=== PATIENT | male | born 1955 | race Caucasian/White ===

== ENCOUNTER → 2020-09-21 | Outpatient (CLI) | payer MEDICARE ==
[~2020-09-21] MED LIST: ASPI81TA45 PO; ATOR20TA37 PO; CHOL10003 PO; DOXA8TAB63 PO; FINA5TAB4 PO; LOSA100T14 PO; MELO7.5T31 PO; OMEG-133 PO; TAMS-11 PO; UBID100C41 PO
[2020-09-21 14:25] LABS: BASOPHILS % (AUTO) 1 % (0-1); EOSINOPHILS % (AUTO) 2 % (1-7); LYMPHOCYTES % (AUTO) 31 % (22-44); MEAN CORPUSCULAR HEMOGLOBIN 31.9 pg (27.5-34.5); MEAN CORPUSCULAR HGB CONC 34.6 g/dL (33.2-36.2); MEAN PLATELET VOLUME 8.3 fL (7.4-10.4); MONOCYTES % (AUTO) 6 % (2-9); NEUTROPHILS % (AUTO) 60 % (42-75); PLATELET COUNT 210 x10^3/uL (130-400); RED BLOOD COUNT 5.14 x10^6/uL (4.38-5.82)
[2020-09-21 14:28] LABS: MD NO
[2020-09-21 14:36] LABS: ALBUMIN 4.3 g/dL (3.4-5.0); ANION GAP 5 mmol/L (5-15); CALCIUM 9.9 mg/dL (8.5-10.1); CHLORIDE 109 mmol/L (98-107)
[2020-09-21 14:39] LABS: ALANINE AMINOTRANSFERASE 30 U/L (12-78); ALKALINE PHOSPHATASE 78 U/L (45-117); BILIRUBIN,TOTAL 0.7 mg/dL (0.2-1.0); CREATININE 0.68 mg/dL (0.7-1.3); TOTAL PROTEIN 7.8 g/dL (6.4-8.2)
== END | disposition home or self-care (01) ==
LOC: STAR 12:55
PROVIDERS: ATTEND Orthopaedic Surgery
DX: Z01.810 Encounter for preprocedural cardiovascular examination (principal); Z01.818 Encounter for other preprocedural examination; M25.561 Pain in right knee; M17.11 Unilateral primary osteoarthritis, right knee; Z20.822 Contact with and (suspected) exposure to COVID-19
CPT/HCPCS: 36415; 80053; 85025; 87081; 93005; U0003; U0005

== ENCOUNTER 2020-09-27 05:39 | Observation (INO) | payer MEDICARE ==
[~2020-09-27] VITALS: Ht 177.8 cm; Wt 105.0 kg
[2020-09-27] MEDS ORDERED: ROPIvacaine/PF 0.2%, 20 ML ONE (06:22)
[2020-09-27] MEDS ORDERED: VANCOMYCIN 1,000 MG ONE (06:22)
[2020-09-27] MEDS ORDERED: TRANEXAMIC ACID 100 MG/ML, 10ML ONE (06:22)
[2020-09-27] MEDS ORDERED: KETOROLAC 60 MG/2 ML ONE (06:22)
[2020-09-27] MEDS ORDERED: SODIUM CHLORIDE 0.9% 50 ML ONE (06:23)
[2020-09-27] MEDS ORDERED: EPINEPHRINE 1 MG/ML, 1ML ONE (06:23)
[2020-09-27] MEDS ORDERED: LACTATED RINGERS 1,000 ML IV SCH (06:30)
[2020-09-27] MEDS ORDERED: CHLORHEXIDINE 15 ML UDC PO ONE (06:30)
[2020-09-27] MEDS ORDERED: MIDAZOLAM 1 MG/ML, 2ML ONE (07:07)
[2020-09-27] MEDS ORDERED: LIDOCAINE-MPF 2% ,5ML ONE (07:08)
[2020-09-27] MEDS ORDERED: FENTANYL PF 250 MCG/5ML ONE (07:08)
[2020-09-27] MEDS ORDERED: CEFAZOLIN 1,000 MG ONE (07:19)
[2020-09-27] MEDS ORDERED: DEXAMETHASONE 4 MG/ML, 5ML ONE (07:19)
[2020-09-27] MEDS ORDERED: ONDANSETRON 2MG/ML, 2ML ONE (07:19)
[2020-09-27] MEDS ORDERED: PROPOFOL 10 MG/ML, 20ML ONE (07:19)
[2020-09-27] MEDS ORDERED: ACETAMINOPHEN 325 MG TABLET PO PRN (08:00)
[2020-09-27] MEDS ORDERED: ONDANSETRON 2MG/ML, 2ML IVPush PRN (08:00)
[2020-09-27] MEDS ORDERED: PROMETHAZINE 25 MG/ML, 1ML IVPush PRN (08:00)
[2020-09-27] MEDS ORDERED: OXYcodone 5 MG/5 ML ORAL.SOL UDC PO PRN (08:00)
[2020-09-27] MEDS ORDERED: HYDROmorphone 1 MG/ML, 1ML INJ IVPush PRN (08:00)
[2020-09-27] MEDS ORDERED: EPHEDRINE 50 MG/ML, 1ML IVPush PRN (08:00)
[2020-09-27] MEDS ORDERED: LABETALOL 5MG/ML, 20ML IV PRN (08:00)
[2020-09-27] MEDS ORDERED: hydrALAzine 20 MG/ML, 1ML IV PRN (08:00)
[2020-09-27] MEDS ORDERED: FENTANYL PF 100 MCG/2ML ONE (08:52)
[2020-09-27] MEDS ORDERED: OXYcodone 5 MG/5 ML ORAL.SOL UDC ONE (08:53)
[2020-09-27] MEDS ORDERED: DEXAMETHASONE 4 MG/ML, 1ML IVPush ONE (09:00)
[2020-09-27] MEDS ORDERED: ONDANSETRON 4 MG TABLET PO PRN (09:00)
[2020-09-27] MEDS ORDERED: DIPHENHYDRAMINE 50 MG/ML, 1ML IVPush PRN (09:00)
[2020-09-27] MEDS ORDERED: PROMETHAZINE 25 MG/ML, 1ML IM PRN (09:00)
[2020-09-27] MEDS ORDERED: PSYLLIUM PACKET PO PRN (09:00)
[2020-09-27] MEDS ORDERED: DOCUSATE 100 MG CAPSULE PO SCH (09:00)
[2020-09-27] MEDS ORDERED: ONDANSETRON 2MG/ML, 2ML IV PRN (09:00)
[2020-09-27] MEDS ORDERED: SENNA/DOCUSATE TABLET PO PRN (09:00)
[2020-09-27] MEDS ORDERED: MAGNESIUM HYDROXIDE 8%, 30ML UDC PO PRN (09:00)
[2020-09-27] MEDS ORDERED: PROMETHAZINE 12.5 MG SUPP PR PRN (09:00)
[2020-09-27] MEDS ORDERED: POLYETHYLENE GLYCOL 17 GM PACKET PO PRN (09:00)
[2020-09-27] MEDS ORDERED: CEFAZOLIN PMX 1GM/50ML 50 ML IVPB SCH (09:00)
[2020-09-27] MEDS ORDERED: ALUMINUM/MAG/SIMETHICONE 30 ML UDC PO PRN (09:00)
[2020-09-27] MEDS ORDERED: SODIUM CHLORIDE 0.9% 1,000 ML IV SCH (09:00)
[2020-09-27] MEDS ORDERED: KETOROLAC 30 MG/1 ML IV SCH (09:00)
[2020-09-27] MEDS ORDERED: DIAZEPAM 5 MG TABLET PO PRN (09:00)
[2020-09-27] MEDS ORDERED: BISACODYL 10 MG SUPP PR PRN (09:00)
[2020-09-27] MEDS ORDERED: OXYcodone IR 5MG TABLET PO PRN ×2 (09:00)
[2020-09-27] MEDS ORDERED: TRANEXAMIC ACID 1,000 MG in SODIUM CHLORIDE 0.9% 100 ML IVPB ONE (09:00)
[2020-09-27] MEDS ORDERED: ACETAMINOPHEN 500 MG TABLET PO SCH (09:00)
[2020-09-27] MEDS: FENTANYL PF 100 MCG/2ML IV PRN ×2 (09:05→09:20)
[2020-09-27] MEDS ORDERED: HYDROmorphone 1 MG/ML, 1ML INJ ONE (09:17)
[2020-09-27] MEDS ORDERED: DIPHENHYDRAMINE 25 MG CAPSULE PO PRN (10:30)
[2020-09-27] MEDS ORDERED: ASPIRIN 81 MG TABLET EC PO SCH (20:00)
== END 2020-09-27 14:00 | disposition home or self-care (01) ==
LOC: OUT 05:39 → ORIP 08:52
PROVIDERS: ADMIT Orthopaedic Surgery; ATTEND Orthopaedic Surgery
DX: M17.11 Unilateral primary osteoarthritis, right knee (principal); M70.42 Prepatellar bursitis, left knee; I10 Essential (primary) hypertension; E78.5 Hyperlipidemia, unspecified; Z79.899 Other long term (current) drug therapy; Z96.651 Presence of right artificial knee joint
CPT/HCPCS: 27340; 27447; 88304; 97110; 97161; C1713; C1776; G0378; J0171; J0690; J1100; J1170; J1885; J2250; J2405; J2704; J2795; J3010; J3490; J7120; J3370